=== PATIENT | female | born 1960 | race Caucasian/White ===

== ENCOUNTER 2018-01-15 17:54 | Emergency (ER) | payer MEDICARE, OTHER ==
[~2018-01-15] VITALS: Ht 167.6 cm; Wt 49.9 kg
[~2018-01-15 17:54] MED LIST: ALBU90OI; ALBU90OI INH; ALPR1; ASPI81CH; ASPI81EC; AZIT250; BACL10; BIOTIN; Benadryl Itch28.3 G1 TP; CALCA500CH; CEFD300 PO; CEPH250SUA PO; CLIN150 PO; CLIN300 PO; CONEST.625; Cleocin HCl150 MG PO; DOXY100 PO; ELET40TA; EPIN.3I; EPIN.3I IM; EPIPEN 2-P0.3 MG/0.3 IJ; Estradiol1 MG PO; HORMONE THERAPY; HYDACE10B; HYDACE5325; HYDACE5325 PO; HYDSUL200; HYDSUL200 PO; HYOS.375ER; HYOS0.375T; ISODICACE; Imitrex100 MG PO; LEUC5; LEVOCETIRIZINE D5 MG PO; LEVOTHYROXINE; LEVSOD100 PO; LEVSOD25 PO; LEVSOD50; LIOT25 PO; LORA10ER; METHOTREXATE INJ; MORP30ER; MORP30ER PO; MORP60ER; MORP60ER PO; MORPHINE; MULVITA; NASACORT10.8 ML; OMEP20ER PO; ONDA4 PO; ONDA4ODT MM; ONE DAILY MULT1 EACH PO; OXYACE5T PO; POTASSIUM OTC; PRED10 PO; PRED20 PO; PRED5; PROC5S PR; PROM25; PROM25 PO; Pepcid40 MG PO; Prednisone20 MG PO; Prilosec Otc20 MG PO; RANI150; RXONDA4ODT MM; TEGA6; TIZA4; TRAM50 PO; TRIAOIA; Vibramycin100 MG PO; Zofran Odt4 MG SL; [UNRECOGNIZED DRUG - SUPPLY]
[2018-01-15] MEDS ORDERED: Nortriptyline H10 MG PO (21:03)
[2018-01-15] MEDS ORDERED: Ultram50 MG PO (21:03)
== END 2018-01-15 21:25 | disposition home or self-care (01) ==
LOC: ER 17:54
DX: S06.0X9A Concussion with loss of consciousness of unspecified duration, initial encounter (principal); W22.8XXA Striking against or struck by other objects, initial encounter
CPT/HCPCS: 70450; 99284

== ENCOUNTER 2018-05-26 12:23 | Emergency (ER) | payer MEDICARE, OTHER ==
[~2018-05-26] VITALS: Ht 167.6 cm; Wt 47.6 kg
[~2018-05-26 12:23] MED LIST changes: +Nortriptyline H10 MG PO; +Ultram50 MG PO
[2018-05-26 13:01] LABS: BASOPHILS ABSOLUTE AUTO 0.02 K/mm3 (0.00-0.23); BASOPHILS PERCENT AUTO 0 % (0-2); EOSINOPHILS ABSOLUTE AUTO 0.09 K/mm3 (0.00-0.68); EOSINOPHILS PERCENT AUTO 1 % (0-6); Hematocrit 42.7 % (33.0-51.0); Hemoglobin 13.3 g/dL (11.5-16.0); IMMATURE GRAN ABSOLUTE AUTO 0.02 K/mm3 (0.00-0.10); IMMATURE GRAN PERCENT AUTO 0 % (0-1); LYMPHOCYTES ABSOLUTE AUTO 3.39 K/mm3 (0.84-5.20); LYMPHOCYTES PERCENT AUTO 46 % (21-46); MONOCYTES ABSOLUTE AUTO 0.27 K/mm3 (0.16-1.47); MONOCYTES PERCENT AUTO 4 % (4-13); Mean Corpuscular HGB Conc 31.1 g/dL (31.5-36.5); Mean Corpuscular Volume 90 fL (80-100); NEUTROPHILS ABSOLUTE AUTO 3.63 K/mm3 (1.96-9.15); NEUTROPHILS PERCENT AUTO 49 % (41-73); Platelet Count 355 K/mm3 (150-400); RDW Coefficient Variation 13.2 % (11.7-14.2); RDW Standard Deviation 43.2 fL (35.1-46.3); Red Blood Cell Count 4.75 M/mm3 (3.80-5.20); White Blood Cell Count 7.42 K/mm3 (4.00-11.30)
[2018-05-26 13:16] LABS: Alanine Aminotransfer (ALT/SGP 63 U/L (12-78); Albumin, Blood 3.3 g/dL (3.4-5.0); Albumin/Globulin Ratio 0.8 (0.8-1.8); Alk Phos 104 U/L (50-136); Anion Gap 11 mmol/L (6-16); Aspartate Aminotrans (AST/SGOT 47 U/L (12-37); Bilirubin, Total 0.3 mg/dL (0.1-1.0); Blood Urea Nitrogen 21 mg/dL (8-24); Bun/Creatinine Ratio 24.5 (12.0-20.0); CO2, Blood 22 mmol/L (21-32); Calcium, Blood 8.3 mg/dL (8.5-10.1); Chloride, Blood 111 mmol/L (98-108); Creatinine, Blood 0.86 mg/dL (0.40-1.00); Globulin, Blood 3.9 g/dL (2.2-4.0); Glomerular Filtration Rate >60 (60-); Glucose, Blood 202 mg/dL (70-99); Potassium, Blood 3.8 mmol/L (3.5-5.5); Sodium, Blood 144 mmol/L (136-145); Total Protein, Blood 7.2 g/dL (6.4-8.2)
[2018-05-26] MEDS ORDERED: ACET325 PO (15:14)
[2018-05-26] MEDS ORDERED: Synthroid/Lev0.05 MG PO (17:46)
[2018-05-26] MEDS ORDERED: OMEPRAZOLE MAGN20 MG PO (17:46)
== END 2018-05-26 18:07 | disposition home or self-care (01) ==
LOC: ER 12:23
PROVIDERS: Emergency Medicine
DX: E86.0 Dehydration (principal); Z91.030 Bee allergy status; Z91.041 Radiographic dye allergy status; Z88.0 Allergy status to penicillin; Z88.2 Allergy status to sulfonamides; Z88.1 Allergy status to other antibiotic agents
CPT/HCPCS: 36415; 71046; 80053; 81000; 84443; 84484; 85025; 93005; 93010; 96374; 99285-25; C9113; J7120

== ENCOUNTER 2018-07-03 01:17 | Emergency (ER) | payer MEDICARE, OTHER ==
[~2018-07-03] VITALS: Ht 167.6 cm; Wt 49.9 kg
[~2018-07-03 01:17] MED LIST changes: +ACET325 PO; +OMEPRAZOLE MAGN20 MG PO; +Synthroid/Lev0.05 MG PO
[2018-07-03 01:50] LABS: Source, Urine Clean Catch
[2018-07-03 01:53] LABS: Bilirubin, Urine Neg (Neg); Blood, Urine Neg (Neg); Glucose Qualitative, Urine Neg (Neg); Ketones, Urine Neg (Neg); Leukocyte Esterase, Urine 1+ (Neg); Nitrite, Urine Neg (Neg); Protein, Urine Neg (Neg); Urobilinogen, Urine NORM (Normal)
[2018-07-03 01:57] LABS: BASOPHILS ABSOLUTE AUTO 0.03 K/mm3 (0.00-0.23); BASOPHILS PERCENT AUTO 0 % (0-2); EOSINOPHILS ABSOLUTE AUTO 0.17 K/mm3 (0.00-0.68); EOSINOPHILS PERCENT AUTO 2 % (0-6); Hematocrit 36.5 % (33.0-51.0); Hemoglobin 11.5 g/dL (11.5-16.0); IMMATURE GRAN ABSOLUTE AUTO 0.05 K/mm3 (0.00-0.10); IMMATURE GRAN PERCENT AUTO 1 % (0-1); LYMPHOCYTES ABSOLUTE AUTO 4.87 K/mm3 (0.84-5.20); LYMPHOCYTES PERCENT AUTO 57 % (21-46); MONOCYTES ABSOLUTE AUTO 0.53 K/mm3 (0.16-1.47); MONOCYTES PERCENT AUTO 6 % (4-13); Mean Corpuscular HGB Conc 31.5 g/dL (31.5-36.5); Mean Corpuscular Volume 89 fL (80-100); Mean Platelet Volume 9.7 fL (9.1-12.4); NEUTROPHILS ABSOLUTE AUTO 2.91 K/mm3 (1.96-9.15); NEUTROPHILS PERCENT AUTO 34 % (41-73); Platelet Count 324 K/mm3 (150-400); RDW Coefficient Variation 13.2 % (11.7-14.2); RDW Standard Deviation 43.4 fL (35.1-46.3); Red Blood Cell Count 4.11 M/mm3 (3.80-5.20); White Blood Cell Count 8.56 K/mm3 (4.00-11.30)
[2018-07-03 02:06] LABS: Appearance, Urine Clear (Clear); Color, Urine Yellow (P-Yellow)
[2018-07-03 02:07] LABS: Bacteria Few /hpf; Red Blood Cells, Urine 0-2 /hpf (0-2); Squamous Epithelial Cells Few /hpf (Few)
[2018-07-03 03:06] LABS: Anion Gap 5 mmol/L (6-16); Blood Urea Nitrogen 24 mg/dL (8-24); Bun/Creatinine Ratio 34.1 (12.0-20.0); CO2, Blood 29 mmol/L (21-32); Calcium, Blood 8.3 mg/dL (8.5-10.1); Chloride, Blood 107 mmol/L (98-108); Glomerular Filtration Rate >60 (60-); Glucose, Blood 77 mg/dL (70-99); Potassium, Blood 3.6 mmol/L (3.5-5.5); Sodium, Blood 141 mmol/L (136-145); Troponin I <0.015 ng/mL (0.000-0.040)
[2018-07-03] MEDS ORDERED: Vibramycin100 MG PO (03:26)
== END 2018-07-03 03:36 | disposition home or self-care (01) ==
LOC: ER 01:17
PROVIDERS: Emergency Medicine
DX: R07.89 Other chest pain (principal); N39.0 Urinary tract infection, site not specified; L98.9 Disorder of the skin and subcutaneous tissue, unspecified; E03.9 Hypothyroidism, unspecified; Z91.038 Other insect allergy status; Z91.030 Bee allergy status; Z91.041 Radiographic dye allergy status; Z88.0 Allergy status to penicillin; Z88.2 Allergy status to sulfonamides; Z88.1 Allergy status to other antibiotic agents; Z79.899 Other long term (current) drug therapy
CPT/HCPCS: 36415; 80048; 81001; 84484; 85025; 87086; 93005; 93010; 99283-25

== ENCOUNTER 2019-01-01 21:54 | Inpatient (IN) | payer MEDICARE, OTHER ==
[~2019-01-01] VITALS: Ht 167.6 cm; Wt 51.8 kg
[2019-01-01 22:46] LABS: Hematocrit 41.1 % (33.0-51.0); Mean Corpuscular HGB 27.7 pg (26.0-34.0); Mean Corpuscular HGB Conc 31.6 g/dL (31.5-36.5); Mean Corpuscular Volume 88 fL (80-100); Mean Platelet Volume 11.4 fL (9.1-12.4); Platelet Count 154 K/mm3 (150-400); RDW Coefficient Variation 14.6 % (11.7-14.2); RDW Standard Deviation 46.8 fL (35.1-46.3); Red Blood Cell Count 4.69 M/mm3 (3.80-5.20); White Blood Cell Count 12.75 K/mm3 (4.00-11.30)
[2019-01-01 23:06] LABS: BAND PERCENT MAN 26 % (0-8); BASOPHILS PERCENT MAN 0 % (0-2); EOSINOPHILS PERCENT MAN 0 % (0-6); LYMPHOCYTES ABSOLUTE MAN 1.65 K/mm3 (0.84-5.20); LYMPHOCYTES PERCENT MAN 13 % (21-46); METAMYELOCYTE ABSOLUTE MAN 0.12 K/mm3 (0.00-0.00); METAMYELOCYTE PERCENT MAN 1 % (0-0); MONOCYTES ABSOLUTE MAN 0.63 K/mm3 (0.16-1.47); MONOCYTES PERCENT MAN 5 % (4-13); MYELOCYTE ABSOLUTE MAN 0.12 K/mm3 (0.00-0.00); MYELOCYTE PERCENT MAN 1 % (0-0); SEG NEUTROPHILS PERCENT MAN 54 % (41-73); TOTAL CELLS COUNTED 100
[2019-01-01 23:49] LABS: Albumin, Blood 3.1 g/dL (3.4-5.0); Albumin/Globulin Ratio 0.8 (0.8-1.8); Bilirubin, Total 1.1 mg/dL (0.1-1.0); Bun/Creatinine Ratio 30.1 (12.0-20.0); Calcium, Blood 8.2 mg/dL (8.5-10.1); Creatinine, Blood 1.23 mg/dL (0.40-1.00); Globulin, Blood 3.8 g/dL (2.2-4.0); Potassium, Blood 3.8 mmol/L (3.5-5.5); Total Protein, Blood 6.9 g/dL (6.4-8.2)
[2019-01-02 00:23] LABS: Influenza A Negative (NEGATIVE); Influenza B Negative (NEGATIVE)
[2019-01-02 00:48] LABS: Candida species (DNA Probe) Negative (NEGATIVE); G. vaginalis (DNA Probe) Negative (NEGATIVE); T. vaginalis (DNA Probe) Negative (NEGATIVE)
[2019-01-02 02:01] LABS: Albumin, Blood 3.4 g/dL (3.4-5.0); Albumin/Globulin Ratio 0.9 (0.8-1.8); Bilirubin, Total 1.3 mg/dL (0.1-1.0); Bun/Creatinine Ratio 30.3 (12.0-20.0); Calcium, Blood 8.1 mg/dL (8.5-10.1); Creatinine, Blood 1.19 mg/dL (0.40-1.00); Globulin, Blood 3.9 g/dL (2.2-4.0); Potassium, Blood 3.9 mmol/L (3.5-5.5); Total Protein, Blood 7.3 g/dL (6.4-8.2)
[2019-01-02 08:46] LABS: Source, Urine Clean Catch
[2019-01-02 08:51] LABS: Bilirubin, Urine Neg (Neg); Blood, Urine 2+ (Neg); Glucose Qualitative, Urine Neg (Neg); Ketones, Urine Neg (Neg); Leukocyte Esterase, Urine Neg (Neg); Nitrite, Urine Neg (Neg); Protein, Urine 2+ (Neg); Urobilinogen, Urine NORM (Normal)
[2019-01-02 09:11] LABS: Appearance, Urine Clear (Clear); Color, Urine Yellow (P-Yellow)
[2019-01-02 09:23] LABS: Bacteria Few /hpf; Squamous Epithelial Cells Few /hpf (Few)
[2019-01-02 09:24] LABS: Amorphous Light (0-Heavy)
[2019-01-02 09:25] LABS: WBC Cast 0-2 /lpf (0)
[2019-01-02 09:26] LABS: Transitional Epithelial Cells Rare /hpf (0-Rare)
--- NOTE | 2019-01-02 13:43 | NUR ---
History, Chart, Medications and Allergies reviewed before start of procedure.Lungs clear T/O to Auscultation. Patient confirms NPO status and agrees with scheduled surgery.
--- NOTE | 2019-01-02 18:14 | NUR ---
NEW ER ADMIT. CAME TO ROOM 1630 FROM DAY SURG WHERE SHE HAD BEEN WAITING FOR EGD WITH DR DANIEL R/T MELENA X 2 DAYS, PROCEDURE HAS BEEN DELAYED SO BROUGHT TO ROOM. DAY COOK [facility] WILL BE BACK FOR PT APPROX 2 HRS. SHE CONTINUES NPO. STATE UPPER ABD PAIN & H/A 06/21, DR PERSON ORDER DILAUDID 1MG, PT STATE GOOD RELIEF. LR INFUSING @ 150 ML/HR. TELE NSR 80'S. ABD IS SOFT/TENDER. PT IS A/O X4, PLEASANT/COOPERATIVE, APPRECIATIVE. VSS W TEMP 100.6
--- NOTE | 2019-01-02 20:03 | NUR ---
INTO SDS VIA Rezzie. PT A&OX3. DENIES PAIN, BUT REPORTS INTERMITTENT NAUSEA.NPO STATUS CONFIRMED. ALLERGIES AND HISTORY REVIEWED. LUNGS CLEAR.
--- NOTE | 2019-01-02 20:36 | NUR ---
01/02/192035 Kathy [place] History, Chart, Medications and Allergies reviewed before start of procedure.Patient confirms NPO status and agrees with scheduled surgery.PATIENT DETERMINED TO BE ASA APPROPRIATE FOR PROPOFOL SEDATION PRIOR TO START OF PROCEDURE BY .MONITOR INTACT WITH CONTINUOUS PULSE OXIMETRY AND INTERMITTENT BP.3-LEAD EKG REVIEWED WITH PHYSICIAN PRIOR TO START OF PROCEDURE.O2 VIA N/C INTACT THROUGHOUT SEDATION/PROCEDURE.
[2019-01-02 20:57] LABS: U Amphetamine Screen DETECTED; U Barbituate Screen Not Detected; U Benzodiazapine Screen Not Detected; U Buprenorphine Screen Not Detected; U Cannabinoids Screen Not Detected; U Cocaine Screen Not Detected; U Methadone Screen Not Detected; U Methamphetamine Screen DETECTED; U Opiates Screen Not Detected; U Oxycodone Screen Not Detected; U Phencyclidine Screen Not Detected; U Propoxyphene Screen Not Detected
--- NOTE | 2019-01-03 05:30 | NUR ---
*SHIFT SUMMARY* PATIENT IS ALERT AND ORIENTED. PATIENT WENT TO PROCEDURE FOR EGD AROUND 193. PATIENT RETURNED JUST BEFORE 2099. PATIENT WAS AWAKE AND TALKING, COMPLAINING OF MILD NAUSEA. STATING SHE WANTS TO TRY TO EAT SOME DINNER, HER SON WENT OUT TO GET HER SOME DINNER. PATIENT REQUESTED ZOFRAN TO HELP DECREASE HER NAUSEA. PATIENT ATE SOME JELLO FOLLOWED BY CRACKERS AND WATER. PATIENT BEGAN TO VOMIT SOON AFTER. PATIENT VOMITED SEVERAL TIMES FOR ABOUT TWO HOURS AFTER BEING MEDICATED WITH ZOFRAN. CALLED HOSPITALIST. NEW ORDERS FOR ONE TIME ZOFRAN 4MG, AND CHANGED THE Q6HR ZOFRAN PRN TO Q4HR PRN AND ADDED REGLAN Q6HR PRN. PATIENT WAS MEDICATED WITH ONE TIME DOSE. PATIENT STILL COMPLAINED OF NAUSEA AND VOMITING. PATIENT DID NOT EAT ANYTHING OR DRINK ANYTHING AFTER EATING THE CRACKERS AND JELLO. MEDICATED WITH REGLAN ORDERED. PATIENT REPORTS A DECREASE IN NAUSEA AND HAS BEEN SLEEPING FOR SINCE MEDICATED. PATIENT UP IN ROOM INDEPENDENT TO BATHROOM, PATIENT HAS BEEN WRITING URINE OUTPUT ON BOARD FOR STAFF TO CHART. CALL LIGHT IN ROOM, BED LOWERED AND LOCKED.
[2019-01-03 05:36] LABS: Hematocrit 31.2 % (33.0-51.0); Mean Corpuscular HGB 28.1 pg (26.0-34.0); Mean Corpuscular HGB Conc 32.1 g/dL (31.5-36.5); Mean Corpuscular Volume 88 fL (80-100); Mean Platelet Volume 12.2 fL (9.1-12.4); Platelet Count 123 K/mm3 (150-400); RDW Coefficient Variation 14.6 % (11.7-14.2); RDW Standard Deviation 47.5 fL (35.1-46.3); Red Blood Cell Count 3.56 M/mm3 (3.80-5.20); White Blood Cell Count 16.11 K/mm3 (4.00-11.30)
[2019-01-03 06:17] LABS: Anion Gap 6 mmol/L (6-16); Blood Urea Nitrogen 14 mg/dL (8-24); Bun/Creatinine Ratio 19.1 (12.0-20.0); CO2, Blood 26 mmol/L (21-32); Chloride, Blood 108 mmol/L (98-108); Creatinine, Blood 0.73 mg/dL (0.40-1.00); Glomerular Filtration Rate >60 (60-); Glucose, Blood 67 mg/dL (70-99); Potassium, Blood 3.3 mmol/L (3.5-5.5); Sodium, Blood 140 mmol/L (136-145)
[2019-01-03 06:32] LABS: BAND PERCENT MAN 11 % (0-8); BASOPHILS PERCENT MAN 0 % (0-2); EOSINOPHILS PERCENT MAN 0 % (0-6); LYMPHOCYTES ABSOLUTE MAN 1.77 K/mm3 (0.84-5.20); LYMPHOCYTES PERCENT MAN 11 % (21-46); MONOCYTES ABSOLUTE MAN 0.48 K/mm3 (0.16-1.47); MONOCYTES PERCENT MAN 3 % (4-13); NEUTROPHILS ABSOLUTE MAN 13.85 K/mm3 (1.96-9.15); SEG NEUTROPHILS PERCENT MAN 75 % (41-73); TOTAL CELLS COUNTED 100
[2019-01-03 07:16] LABS: HBSAG SCREEN Negative (Negative); HEP A AB, IGM Negative (Negative); HEP B CORE AB, IGM Negative (Negative); HEP C VIRUS AB <0.1 (0.0-0.9)
[2019-01-03 14:27] LABS: Prothrombin Time Results 10.6 Sec (9.7-11.5)
[2019-01-03 14:53] LABS: Albumin, Blood 2.5 g/dL (3.4-5.0); Albumin/Globulin Ratio 0.8 (0.8-1.8); Bilirubin, Direct 0.2 mg/dL (0.0-0.3); Bilirubin, Indirect 0.4 mg/dL (0.1-0.7); Bilirubin, Total 0.6 mg/dL (0.1-1.0); Globulin, Blood 3.1 g/dL (2.2-4.0); Total Protein, Blood 5.6 g/dL (6.4-8.2)
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
[2019-01-04 02:13] LABS: CHLAMYDIA TRACHOMATIS, NAA Negative (Negative); NEISSERIA GONORRHOEAE, NAA Negative (Negative)
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
[2019-01-04 05:04] LABS: BASOPHILS ABSOLUTE AUTO 0.03 K/mm3 (0.00-0.23); BASOPHILS PERCENT AUTO 0 % (0-2); EOSINOPHILS ABSOLUTE AUTO 0.09 K/mm3 (0.00-0.68); EOSINOPHILS PERCENT AUTO 1 % (0-6); Hematocrit 32.8 % (33.0-51.0); Hemoglobin 10.3 g/dL (11.5-16.0); IMMATURE GRAN ABSOLUTE AUTO 0.03 K/mm3 (0.00-0.10); IMMATURE GRAN PERCENT AUTO 0 % (0-1); LYMPHOCYTES PERCENT AUTO 22 % (21-46); MONOCYTES ABSOLUTE AUTO 0.24 K/mm3 (0.16-1.47); MONOCYTES PERCENT AUTO 2 % (4-13); Mean Corpuscular HGB 27.5 pg (26.0-34.0); Mean Corpuscular HGB Conc 31.4 g/dL (31.5-36.5); Mean Corpuscular Volume 88 fL (80-100); Mean Platelet Volume 12.4 fL (9.1-12.4); NEUTROPHILS ABSOLUTE AUTO 8.87 K/mm3 (1.96-9.15); NEUTROPHILS PERCENT AUTO 75 % (41-73); Platelet Count 124 K/mm3 (150-400); RDW Coefficient Variation 14.5 % (11.7-14.2); RDW Standard Deviation 46.7 fL (35.1-46.3); Red Blood Cell Count 3.74 M/mm3 (3.80-5.20); White Blood Cell Count 11.86 K/mm3 (4.00-11.30)
[2019-01-04 06:01] LABS: Alanine Aminotransfer (ALT/SGP 396 U/L (12-78); Albumin, Blood 2.5 g/dL (3.4-5.0); Albumin/Globulin Ratio 0.8 (0.8-1.8); Alk Phos 147 U/L (50-136); Anion Gap 7 mmol/L (6-16); Aspartate Aminotrans (AST/SGOT 140 U/L (12-37); Bilirubin, Total 0.5 mg/dL (0.1-1.0); Blood Urea Nitrogen 9 mg/dL (8-24); Bun/Creatinine Ratio 10.4 (12.0-20.0); CO2, Blood 26 mmol/L (21-32); Calcium, Blood 8.1 mg/dL (8.5-10.1); Chloride, Blood 112 mmol/L (98-108); Creatinine, Blood 0.86 mg/dL (0.40-1.00); Globulin, Blood 3.1 g/dL (2.2-4.0); Glomerular Filtration Rate >60 (60-); Glucose, Blood 165 mg/dL (70-99); Potassium, Blood 2.9 mmol/L (3.5-5.5); Sodium, Blood 145 mmol/L (136-145); Total Protein, Blood 5.6 g/dL (6.4-8.2)
--- NOTE | 2019-01-04 16:17 | NUR ---
SHIFT SUMMARY ADMITTED FOR MELENA/SEPSIS/COFFEE GROUND EMESIS. PT HAS A COLONOSCOPY RESCHEDULED FOR SUNDAY DUE TO SEVERE NAUSEA (PREV. ONE CANCELLED). DR. WOODARD WANTS THE PT PUT ON FULL LIQUIDS TOMORROW, AND AT MIDNIGHT TO WATER ONLY. SHE WILL START GO-LYTELY SUNDAY MORNING, NPO AT 2 PM BEFORE PROCEDURE. PT IS INDEPENDENT IN ROOM, A & O X4, TAKES HER MEDS WHOLE. TODAY SHE HAS FELT INTERMITTENT NAUSEA, ALTERNATIVELY TREATED WITH MEDICATIONS AND CRACKERS/JUICE. TELEMETRY WAS DC'D TODAY. PHENERGAN SEEMS TO CONTROL NAUSEA BEST.
--- NOTE | 2019-01-05 03:24 | NUR ---
SHIFT SUMMARY PATIENT HAD NO ACUTE CHANGES OBSERVED DURING THE SHIFT. AXO X3 AND INDEPENDENT IN THE ROOM. REPORTED N/V AMD PHENERGAN GIVEN PER EMAR. IV DILAUDID FOR ABDOMEN PAIN/ORR PER EMAR. PATIENT REPORTS CRACKERS HELP WITH N/V. PIV REMAINS INTACT. IV ABX INFUSED. PATIENT LESS ANXIOUS THIS SHIFT. VSS/AFEBRILE. DENIES SOB. ON REGULAR DIET. PATIENT SCHEDULE FOR COLONOSCOPY FOR SUNDAY LATE AFTERNOON. CALL LIGHT IN REACH. BED IN LOWEST POSITION. WILL CONTINUE TO MONITOR UNTIL DAY SHIFT NURSE ASSUMES CARE.
[2019-01-05 08:29] LABS: BASOPHILS ABSOLUTE AUTO 0.04 K/mm3 (0.00-0.23); BASOPHILS PERCENT AUTO 1 % (0-2); EOSINOPHILS ABSOLUTE AUTO 0.23 K/mm3 (0.00-0.68); EOSINOPHILS PERCENT AUTO 3 % (0-6); Hematocrit 33.3 % (33.0-51.0); Hemoglobin 10.4 g/dL (11.5-16.0); IMMATURE GRAN ABSOLUTE AUTO 0.16 K/mm3 (0.00-0.10); IMMATURE GRAN PERCENT AUTO 2 % (0-1); LYMPHOCYTES ABSOLUTE AUTO 3.99 K/mm3 (0.84-5.20); LYMPHOCYTES PERCENT AUTO 54 % (21-46); MONOCYTES ABSOLUTE AUTO 0.59 K/mm3 (0.16-1.47); MONOCYTES PERCENT AUTO 8 % (4-13); Mean Corpuscular HGB 27.5 pg (26.0-34.0); Mean Corpuscular HGB Conc 31.2 g/dL (31.5-36.5); Mean Corpuscular Volume 88 fL (80-100); Mean Platelet Volume 11.6 fL (9.1-12.4); NEUTROPHILS ABSOLUTE AUTO 2.36 K/mm3 (1.96-9.15); NEUTROPHILS PERCENT AUTO 32 % (41-73); Platelet Count 154 K/mm3 (150-400); RDW Coefficient Variation 14.6 % (11.7-14.2); RDW Standard Deviation 46.9 fL (35.1-46.3); Red Blood Cell Count 3.78 M/mm3 (3.80-5.20); White Blood Cell Count 7.37 K/mm3 (4.00-11.30)
[2019-01-05 08:44] LABS: Alanine Aminotransfer (ALT/SGP 289 U/L (12-78); Albumin, Blood 2.5 g/dL (3.4-5.0); Albumin/Globulin Ratio 0.8 (0.8-1.8); Alk Phos 133 U/L (50-136); Anion Gap 6 mmol/L (6-16); Aspartate Aminotrans (AST/SGOT 67 U/L (12-37); Bilirubin, Total 0.2 mg/dL (0.1-1.0); Blood Urea Nitrogen 12 mg/dL (8-24); Bun/Creatinine Ratio 15.2 (12.0-20.0); CO2, Blood 30 mmol/L (21-32); Calcium, Blood 9.3 mg/dL (8.5-10.1); Chloride, Blood 107 mmol/L (98-108); Creatinine, Blood 0.79 mg/dL (0.40-1.00); Globulin, Blood 3.2 g/dL (2.2-4.0); Glomerular Filtration Rate >60 (60-); Glucose, Blood 81 mg/dL (70-99); Potassium, Blood 3.2 mmol/L (3.5-5.5); Sodium, Blood 143 mmol/L (136-145); Total Protein, Blood 5.7 g/dL (6.4-8.2)
--- NOTE | 2019-01-05 16:38 | NUR ---
SHIFT SUMMARY PT SEEMS MORE EMOTIONAL TODAY, SHE REPORTS PERSONAL ISSUES/DRAMA IN HER LIFE THAT IS CAUSING EXTRA STRESS. SHE REPORTS ONGOING PAIN IN HER HEAD AND ABDOMEN, WELL SEVERE NAUSEA. TOMORROW SHE WILL RECEIVE A SECOND ATTEMPT AT A COLONOSCOPY (1ST ONE CANCELLED). NO DIET ORDERS FOR TONIGHT HAVE BEEN ENTERED. I DID CALL DR. WOODARD'S ANSWERING SERVICE AND WAS CONNECTED TO AN ALTERNATE DR. HE STATED THAT A CLEAR LIQUID DIET WILL BE FINE UNTIL MORNING. I DO REMEMBER DR WOODARD STATING THAT THE PT WOULD BE WATER & ICE CHIPS (PO MEDS OK) AT MIDNIGHT TONIGHT, NPO AT 1500 SATURDAY 01/06. PT WILL BEGIN GO LYTELY AT 0800 TOMORROW. COLONOSCOPY WILL BE A LATE AFTERNOON PROCEDURE.
--- NOTE | 2019-01-05 22:25 | NUR ---
PATIENT RESTING IN BED WATCHING HER COMPUTER. DENIES PAIN, N/V, AND SOB. CALL LIGHT IN REACH. WILL CONTINUE TO MONITOR.
--- NOTE | 2019-01-06 02:28 | NUR ---
SHIFT SUMMARY PATIENT HAD NO ACUTE CHANGES OBSERVED THIS SHIFT. AXO X 4 AND INDEPENDENT IN THE ROOM. DENIES PAIN, SOB, AND N/V. WATER AND ICE CHIPS AFTER 23:30 AND PO MEDS. GOLYTELY 08:00 AFTER ZOFRAN 07:40 THIS AM. NPO AFTER 14:00 TODAY FOR COLONOSCOPY LATE AFTERNOON. PIV REMAINS INTACT. VSS/AFEBRILE. CALL LIGHT IN REACH. BED IN LOWEST POSITION. WILL CONTINUE TO MONITOR UNTIL DAY SHIFT NURSE ASSUMES CARE.
[2019-01-06 05:08] LABS: BASOPHILS ABSOLUTE AUTO 0.05 K/mm3 (0.00-0.23); BASOPHILS PERCENT AUTO 1 % (0-2); EOSINOPHILS ABSOLUTE AUTO 0.29 K/mm3 (0.00-0.68); EOSINOPHILS PERCENT AUTO 4 % (0-6); Hematocrit 34.6 % (33.0-51.0); Hemoglobin 10.8 g/dL (11.5-16.0); IMMATURE GRAN PERCENT AUTO 5 % (0-1); LYMPHOCYTES ABSOLUTE AUTO 4.07 K/mm3 (0.84-5.20); LYMPHOCYTES PERCENT AUTO 53 % (21-46); MONOCYTES ABSOLUTE AUTO 0.64 K/mm3 (0.16-1.47); MONOCYTES PERCENT AUTO 8 % (4-13); Mean Corpuscular HGB 27.6 pg (26.0-34.0); Mean Corpuscular HGB Conc 31.2 g/dL (31.5-36.5); Mean Corpuscular Volume 88 fL (80-100); Mean Platelet Volume 11.3 fL (9.1-12.4); NEUTROPHILS ABSOLUTE AUTO 2.17 K/mm3 (1.96-9.15); NEUTROPHILS PERCENT AUTO 29 % (41-73); Platelet Count 189 K/mm3 (150-400); RDW Coefficient Variation 14.2 % (11.7-14.2); RDW Standard Deviation 45.6 fL (35.1-46.3); Red Blood Cell Count 3.92 M/mm3 (3.80-5.20); White Blood Cell Count 7.62 K/mm3 (4.00-11.30)
[2019-01-06 05:32] LABS: BAND PERCENT MAN 1 % (0-8); BASOPHILS PERCENT MAN 0 % (0-2); EOSINOPHILS ABSOLUTE MAN 0.38 K/mm3 (0.00-0.68); EOSINOPHILS PERCENT MAN 5 % (0-6); LYMPHOCYTES ABSOLUTE MAN 4.34 K/mm3 (0.84-5.20); LYMPHOCYTES PERCENT MAN 57 % (21-46); MONOCYTES ABSOLUTE MAN 0.53 K/mm3 (0.16-1.47); MONOCYTES PERCENT MAN 7 % (4-13); NEUTROPHILS ABSOLUTE MAN 2.36 K/mm3 (1.96-9.15); SEG NEUTROPHILS PERCENT MAN 30 % (41-73); TOTAL CELLS COUNTED 100
[2019-01-06 06:02] LABS: Albumin, Blood 2.6 g/dL (3.4-5.0); Albumin/Globulin Ratio 0.8 (0.8-1.8); Alk Phos 125 U/L (50-136); Anion Gap 8 mmol/L (6-16); Bilirubin, Direct 0.1 mg/dL (0.0-0.3); Bilirubin, Indirect 0.2 mg/dL (0.1-0.7); Bilirubin, Total 0.3 mg/dL (0.1-1.0); Blood Urea Nitrogen 17 mg/dL (8-24); Bun/Creatinine Ratio 21.8 (12.0-20.0); CO2, Blood 29 mmol/L (21-32); Calcium, Blood 8.5 mg/dL (8.5-10.1); Chloride, Blood 105 mmol/L (98-108); Creatinine, Blood 0.78 mg/dL (0.40-1.00); Globulin, Blood 3.2 g/dL (2.2-4.0); Glomerular Filtration Rate >60 (60-); Glucose, Blood 106 mg/dL (70-99); Potassium, Blood 3.4 mmol/L (3.5-5.5); Sodium, Blood 142 mmol/L (136-145); Total Protein, Blood 5.8 g/dL (6.4-8.2)
[2019-01-06 06:03] LABS: Alanine Aminotransfer (ALT/SGP 229 U/L (12-78); Aspartate Aminotrans (AST/SGOT 40 U/L (12-37)
--- NOTE | 2019-01-06 15:46 | NUR ---
PATIENT A/OX4, UP INDEPENDENTLY IN ROOM. VSS THIS SHIFT. COLONOSCOPY ON HOLD DUE TO POWER OUTAGE. IF POWER COMES BACK ON, THEN PATIENT MAY HAVE COLONOSCOPY TOMORROW. ZOFRAN GIVEN X2 THIS SHIFT TO TREAT NAUSEA. 2 20G IV'WS TO R AND L AC'S WNL AND SL. PATIENT IS CALM AND COOPERATIVE WITH CARE. NO ACUTE CHANGES THIS SHIFT.
--- NOTE | 2019-01-07 04:43 | NUR ---
REHABILITATION NURSE SUMMARY NO ACUTE CHANGES THIS SHIFT. PT AAOX4 AND INDEPENDENT IN HER ROOM. STILL COMPLAINS OF SOME ABD PAINS, TREATED WITH ULTRAM AND DILAUDID 0.5 MG IV WITH GOOD PAIN RELIEF. ALSO GIVEN PT 4 MG IV ZOFRAN X1 FOR NAUSEA. PT HAS NOT VOMITED THIS SHIFT, JUST SOME NAUSEA. PT HAS BEEN ON CLEAR LIQUID DIET SINCE MIDNIGHT. VSS, WILL CONTINUE TO MONITOR.
[2019-01-07] MEDS ORDERED: TRAM50 (11:38)
[2019-01-07] MEDS ORDERED: ONDA4ODT (11:38)
--- NOTE | 2019-01-07 14:10 | NUR ---
discharge summary cesar left with her boyfriends mom via car. pivs removed, paperwork reviewed. meds faxed to [facility] per her request. independent in room. has had nausea and pain meds prn, and is being discharged with these with directions to call for f/u appt with connie and the need to establish a pcp.
== END 2019-01-07 13:59 | disposition home or self-care (01) | DRG 683 ==
LOC: ER 21:54 → ERHOLD 21:55 → MEDS 01-02 16:03 → ERHOLD 01-02 16:03 → MEDS 01-02 17:09 → ENPENDDIS 01-07 11:49 → MEDS 01-07 13:59
PROVIDERS: Emergency Medicine; Hospitalist; Internal Medicine; Internal Medicine Gastroenterology; ADMIT Internal Medicine
PROC: 30233N1 Transfusion of Nonautologous Red Blood Cells into Peripheral Vein, Percutaneous Approach (ICD-10-PCS; 2019-01-02)
PROC: 0DB68ZX Excision of Stomach, Via Natural or Artificial Opening Endoscopic, Diagnostic (ICD-10-PCS; principal; 2019-01-02 14:00)
DX: N17.9 Acute kidney failure, unspecified (principal); B17.9 Acute viral hepatitis, unspecified; K92.1 Melena; R65.10 Systemic inflammatory response syndrome (SIRS) of non-infectious origin without acute organ dysfunction; E87.2 Acidosis; E86.0 Dehydration; F15.10 Other stimulant abuse, uncomplicated; E03.9 Hypothyroidism, unspecified; A49.02 Methicillin resistant Staphylococcus aureus infection, unspecified site; M06.9 Rheumatoid arthritis, unspecified; Z86.718 Personal history of other venous thrombosis and embolism; K04.7 Periapical abscess without sinus
CPT/HCPCS: 36415; 76705; 80048; 80053; 80074; 80076; 81001; 83605; 83690; 85025; 85610; 85651; 86850; 86900; 86901; 87040; 87086; 87480; 87491; 87510; 87591; 87660; 87804; 88305; 88342; 93005; 93010; 96361; 96365; 96366; 96367; 96368; 96372-59; 96375; 96376; 99285-25; C9113; G0378; G0480; J0696; J1170; J2405; J2550; J2765; J3010; J7030; J7050; J7120

== ENCOUNTER 2020-07-16 18:51 | Emergency (ER) | payer MEDICARE, OTHER ==
[~2020-07-16] VITALS: Ht 167.6 cm; Wt 49.0 kg
[~2020-07-16 18:51] MED LIST changes: +ONDA4ODT; +TRAM50
[2020-07-16 19:34] LABS: BASOPHILS ABSOLUTE AUTO 0.03 K/mm3 (0.00-0.23); BASOPHILS PERCENT AUTO 0 % (0-2); EOSINOPHILS ABSOLUTE AUTO 0.21 K/mm3 (0.00-0.68); EOSINOPHILS PERCENT AUTO 3 % (0-6); Hematocrit 39.5 % (33.0-51.0); Hemoglobin 12.3 g/dL (11.5-16.0); IMMATURE GRAN ABSOLUTE AUTO 0.02 K/mm3 (0.00-0.10); IMMATURE GRAN PERCENT AUTO 0 % (0-1); LYMPHOCYTES ABSOLUTE AUTO 3.49 K/mm3 (0.84-5.20); LYMPHOCYTES PERCENT AUTO 41 % (21-46); MONOCYTES ABSOLUTE AUTO 0.64 K/mm3 (0.16-1.47); MONOCYTES PERCENT AUTO 8 % (4-13); Mean Corpuscular HGB 27.5 pg (26.0-34.0); Mean Corpuscular HGB Conc 31.1 g/dL (31.5-36.5); Mean Corpuscular Volume 88 fL (80-100); NEUTROPHILS ABSOLUTE AUTO 4.04 K/mm3 (1.96-9.15); NEUTROPHILS PERCENT AUTO 48 % (41-73); Platelet Count 331 K/mm3 (150-400); RDW Coefficient Variation 14.2 % (11.7-14.2); RDW Standard Deviation 45.8 fL (35.1-46.3); Red Blood Cell Count 4.47 M/mm3 (3.80-5.20); White Blood Cell Count 8.43 K/mm3 (4.00-11.30)
[2020-07-16 19:57] LABS: Alanine Aminotransfer (ALT/SGP 137 U/L (12-78); Albumin, Blood 3.2 g/dL (3.4-5.0); Albumin/Globulin Ratio 0.7 (0.8-1.8); Alk Phos 95 U/L (50-136); Anion Gap 4 mmol/L (6-16); Aspartate Aminotrans (AST/SGOT 99 U/L (12-37); Bilirubin, Total 0.2 mg/dL (0.1-1.0); Blood Urea Nitrogen 24 mg/dL (8-24); Bun/Creatinine Ratio 27.3 (12.0-20.0); CO2, Blood 27 mmol/L (21-32); Calcium, Blood 8.8 mg/dL (8.5-10.1); Chloride, Blood 108 mmol/L (98-108); Creatinine, Blood 0.88 mg/dL (0.40-1.00); Globulin, Blood 4.6 g/dL (2.2-4.0); Glomerular Filtration Rate >60 (60-); Glucose, Blood 92 mg/dL (70-99); Potassium, Blood 4.3 mmol/L (3.5-5.5); Sodium, Blood 139 mmol/L (136-145); Total Protein, Blood 7.8 g/dL (6.4-8.2)
[2020-07-16] MEDS ORDERED: LIOT25 PO (20:13)
[2020-07-16] MEDS ORDERED: OMEP20ER PO (20:13)
[2020-07-16] MEDS ORDERED: HYDSUL200 PO (20:14)
[2020-07-16] MEDS ORDERED: EUTHYROX50 MCG (20:14)
[2020-07-16] MEDS ORDERED: ASPI81CH PO (20:15)
[2020-07-16] MEDS ORDERED: CENTRUM SILVER1 EAC2 PO (20:15)
[2020-07-16] MEDS ORDERED: ACET500 PO (20:15)
[2020-07-16 20:33] LABS: Source, Urine Clean Catch
[2020-07-16 20:37] LABS: Bilirubin, Urine Neg (Neg); Blood, Urine 1+ (Neg); Glucose Qualitative, Urine Neg (Neg); Ketones, Urine Neg (Neg); Leukocyte Esterase, Urine 1+ (Neg); Nitrite, Urine Neg (Neg); Protein, Urine Neg (Neg); Urobilinogen, Urine NORM (Normal)
[2020-07-16 20:40] LABS: Appearance, Urine Clear (Clear); Color, Urine Yellow (P-Yellow)
[2020-07-16 20:48] LABS: Bacteria Few /hpf; Squamous Epithelial Cells Few /hpf (Few); White Blood Cells, Urine Rare /hpf (0-5)
[2020-07-16] MEDS ORDERED: SUCR1 PO (21:08)
[2020-07-16] MEDS ORDERED: Voltaren100 GM TOP (21:08)
== END 2020-07-16 21:23 | disposition home or self-care (01) ==
LOC: ER 18:51
PROVIDERS: Physician Assistant
DX: K21.9 Gastro-esophageal reflux disease without esophagitis (principal); M25.512 Pain in left shoulder; G89.29 Other chronic pain; R19.5 Other fecal abnormalities
CPT/HCPCS: 36415; 80053; 81001; 85025; 86850; 86900; 86901; 93005; 93010; 99283-25

== ENCOUNTER 2020-10-15 05:21 | Emergency (ER) | payer MEDICARE, OTHER ==
[~2020-10-15] VITALS: Ht 167.6 cm; Wt 49.9 kg
[~2020-10-15 05:21] MED LIST changes: +ACET500 PO; +ASPI81CH PO; +CENTRUM SILVER1 EAC2 PO; +EUTHYROX50 MCG; +SUCR1 PO; +Voltaren100 GM TOP
[2020-10-15] MEDS ORDERED: IVERMECTIN3 MG PO (05:39)
[2020-10-15] MEDS ORDERED: PERM5TC TOP (06:23)
[2020-10-15] MEDS ORDERED: DOXY100 PO (06:23)
== END 2020-10-15 07:02 | disposition home or self-care (01) ==
LOC: ER 05:21
DX: L03.114 Cellulitis of left upper limb (principal); L03.113 Cellulitis of right upper limb; L03.312 Cellulitis of back [any part except buttock and flank]; L03.313 Cellulitis of chest wall; L03.211 Cellulitis of face; E03.9 Hypothyroidism, unspecified; J45.909 Unspecified asthma, uncomplicated; Z79.899 Other long term (current) drug therapy; Z79.82 Long term (current) use of aspirin; Z91.030 Bee allergy status; Z91.041 Radiographic dye allergy status; Z88.8 Allergy status to other drugs, medicaments and biological substances; Z88.0 Allergy status to penicillin; Z88.2 Allergy status to sulfonamides; Z88.1 Allergy status to other antibiotic agents
CPT/HCPCS: 99282

== ENCOUNTER 2021-02-05 03:31 | Emergency (ER) | payer MEDICARE, OTHER ==
[~2021-02-05] VITALS: Ht 167.6 cm; Wt 47.6 kg
[~2021-02-05 03:31] MED LIST changes: +IVERMECTIN3 MG PO; +PERM5TC TOP
[2021-02-05] MEDS ORDERED: MUPIROCIN22 G2 TOP (06:22)
[2021-02-05] MEDS ORDERED: NEOPOLHCSU LEFTEAR (06:22)
[2021-02-05] MEDS ORDERED: SULTRIDS PO (06:22)
== END 2021-02-05 06:40 | disposition home or self-care (01) ==
LOC: ER 03:31
DX: S71.001A Unspecified open wound, right hip, initial encounter (principal); H60.92 Unspecified otitis externa, left ear; N39.0 Urinary tract infection, site not specified; E03.9 Hypothyroidism, unspecified; Z79.82 Long term (current) use of aspirin; Z91.030 Bee allergy status; Z91.041 Radiographic dye allergy status; Z88.0 Allergy status to penicillin; Z88.2 Allergy status to sulfonamides; Z79.899 Other long term (current) drug therapy; X58.XXXA Exposure to other specified factors, initial encounter
CPT/HCPCS: 99282

== ENCOUNTER → 2021-10-19 | Outpatient (CLI) | payer MEDICARE, OTHER ==
[~2021-10-19] MED LIST changes: +MUPIROCIN22 G2 TOP; +NEOPOLHCSU LEFTEAR; +SULTRIDS PO
== END | disposition home or self-care (01) ==
LOC: LAB SHORT 10:54 → LAB 10:54
DX: L08.0 Pyoderma (principal)
CPT/HCPCS: 87070; 87077; 87147; 87186; 87205

== ENCOUNTER 2021-10-21 15:36 | Emergency (ER) | payer MEDICARE, OTHER ==
[~2021-10-21] VITALS: Ht 167.6 cm; Wt 49.9 kg
[2021-10-21] MEDS ORDERED: DOXY100 PO (16:45)
== END 2021-10-21 16:50 | disposition home or self-care (01) ==
LOC: ER 15:36
DX: L03.114 Cellulitis of left upper limb (principal); E03.9 Hypothyroidism, unspecified; G43.909 Migraine, unspecified, not intractable, without status migrainosus; J45.909 Unspecified asthma, uncomplicated; Z91.030 Bee allergy status; Z91.048 Other nonmedicinal substance allergy status; Z88.0 Allergy status to penicillin; Z88.2 Allergy status to sulfonamides; Z88.1 Allergy status to other antibiotic agents; Z88.8 Allergy status to other drugs, medicaments and biological substances; Z79.82 Long term (current) use of aspirin; Z79.899 Other long term (current) drug therapy
CPT/HCPCS: 73110; 99283-25; A9270

== ENCOUNTER → 2021-12-13 | Outpatient (CLI) | payer MEDICARE, OTHER | END | disposition home or self-care (01) | LOC: LAB SHORT 19:04 | DX: L02.414 Cutaneous abscess of left upper limb (principal) | CPT/HCPCS: 87070; 87075; 87077; 87147; 87186; 87205 ==

== ENCOUNTER 2022-04-01 18:04 | Emergency (ER) | payer OTHER ==
[~2022-04-01] VITALS: Ht 167.6 cm; Wt 52.2 kg
[2022-04-01] MEDS ORDERED: CLIN300 PO (21:18)
== END 2022-04-01 21:31 | disposition home or self-care (01) ==
LOC: ER 18:04
DX: K02.9 Dental caries, unspecified (principal); K05.10 Chronic gingivitis, plaque induced; J02.9 Acute pharyngitis, unspecified; E03.9 Hypothyroidism, unspecified; J45.909 Unspecified asthma, uncomplicated; Z88.0 Allergy status to penicillin; Z88.8 Allergy status to other drugs, medicaments and biological substances; Z91.041 Radiographic dye allergy status; Z91.038 Other insect allergy status; Z79.82 Long term (current) use of aspirin; Z79.899 Other long term (current) drug therapy
CPT/HCPCS: A9270

== ENCOUNTER 2022-04-16 03:05 | Emergency (ER) | payer OTHER ==
[~2022-04-16] VITALS: Ht 170.2 cm; Wt 54.4 kg
[2022-04-16] MEDS ORDERED: PERIDEX15 ML MM (03:36)
[2022-04-16] MEDS ORDERED: IBU600 MG PO (03:36)
[2022-04-16] MEDS ORDERED: CLIN150 PO (03:36)
== END 2022-04-16 04:14 | disposition home or self-care (01) ==
LOC: ER 03:05
DX: K02.9 Dental caries, unspecified (principal); Z88.0 Allergy status to penicillin; Z88.2 Allergy status to sulfonamides; Z88.1 Allergy status to other antibiotic agents; Z91.041 Radiographic dye allergy status; Z91.038 Other insect allergy status; Z79.899 Other long term (current) drug therapy; J45.909 Unspecified asthma, uncomplicated
CPT/HCPCS: A9270

== ENCOUNTER → 2022-08-18 | Outpatient (CLI) | payer OTHER ==
[~2022-08-18] MED LIST changes: +IBU600 MG PO; +PERIDEX15 ML MM
== END | disposition home or self-care (01) ==
LOC: LAB 17:53 → LAB SHORT 17:53
DX: R30.0 Dysuria (principal)
CPT/HCPCS: 87077; 87086; 87186

== ENCOUNTER → 2023-09-17 | Outpatient (CLI) | payer OTHER | LOC: LAB 18:00 → LAB SHORT 18:00 | DX: L08.9 Local infection of the skin and subcutaneous tissue, unspecified (principal) | CPT/HCPCS: 87070; 87077; 87147; 87186; 87205 ==

== ENCOUNTER 2024-07-14 04:16 | Emergency (ER) | payer OTHER ==
[~2024-07-14] VITALS: Ht 167.6 cm; Wt 49.9 kg
[2024-07-14 05:12] LABS: BASOPHILS ABSOLUTE AUTO 0.03 K/mm3 (0.00-0.23); BASOPHILS PERCENT AUTO 0 % (0-2); EOSINOPHILS ABSOLUTE AUTO 0.18 K/mm3 (0.00-0.68); EOSINOPHILS PERCENT AUTO 1 % (0-6); Hematocrit 32.7 % (33.0-51.0); Hemoglobin 10.1 g/dL (11.5-16.0); IMMATURE GRAN ABSOLUTE AUTO 0.06 K/mm3 (0.00-0.10); IMMATURE GRAN PERCENT AUTO 1 % (0-1); LYMPHOCYTES ABSOLUTE AUTO 2.95 K/mm3 (0.84-5.20); LYMPHOCYTES PERCENT AUTO 24 % (21-46); MONOCYTES ABSOLUTE AUTO 0.95 K/mm3 (0.16-1.47); MONOCYTES PERCENT AUTO 8 % (4-13); Mean Corpuscular HGB 24.6 pg (26.0-34.0); Mean Corpuscular HGB Conc 30.9 g/dL (31.5-36.5); Mean Corpuscular Volume 80 fL (80-100); Mean Platelet Volume 9.4 fL (9.1-12.4); NEUTROPHILS ABSOLUTE AUTO 8.38 K/mm3 (1.96-9.15); NEUTROPHILS PERCENT AUTO 67 % (41-73); Platelet Count 403 K/mm3 (150-400); RDW Coefficient Variation 14.6 % (11.7-14.2); RDW Standard Deviation 42.4 fL (35.1-46.3); Red Blood Cell Count 4.11 M/mm3 (3.80-5.20); White Blood Cell Count 12.55 K/mm3 (4.00-11.30)
[2024-07-14 05:41] LABS: Acetaminophen, Random 2.9 ug/mL (10.0-30.0); Alanine Aminotransfer (ALT/SGP 46 U/L (12-78); Albumin, Blood 3.3 g/dL (3.4-5.0); Albumin/Globulin Ratio 0.8 (0.8-1.8); Alk Phos 113 U/L (50-136); Anion Gap 12 mmol/L (3-11); Aspartate Aminotrans (AST/SGOT 74 U/L (12-37); Bilirubin, Total 0.5 mg/dL (0.1-1.0); Blood Urea Nitrogen 20 mg/dL (8-24); Bun/Creatinine Ratio 25.8 (12.0-20.0); CO2, Blood 25 mmol/L (21-32); Calcium, Blood 9.1 mg/dL (8.5-10.1); Chloride, Blood 106 mmol/L (98-108); Creatinine, Blood 0.78 mg/dL (0.40-1.00); Ethanol (Alcohol), Blood, Med <3 mg/dL; Globulin, Blood 4.1 g/dL (2.2-4.0); Glomerular Filtration Rate 86 (60-); Glucose, Blood 84 mg/dL (70-99); Potassium, Blood 2.9 mmol/L (3.5-5.5); Salicylate <1.7 mg/dL (2.8-20.0); Sodium, Blood 140 mmol/L (136-145); Total Protein, Blood 7.4 g/dL (6.4-8.2)
[2024-07-14 06:45] VITALS: BP 138/78
[2024-07-14] MEDS ORDERED: NARCAN4 M1 (07:55)
== END 2024-07-14 08:19 | disposition home or self-care (01) ==
LOC: ER 04:16
PROVIDERS: Emergency Medicine
DX: T40.411A Poisoning by fentanyl or fentanyl analogs, accidental (unintentional), initial encounter (principal); E03.9 Hypothyroidism, unspecified; G43.909 Migraine, unspecified, not intractable, without status migrainosus; J45.909 Unspecified asthma, uncomplicated; Z79.82 Long term (current) use of aspirin; Z79.899 Other long term (current) drug therapy; Z91.038 Other insect allergy status; Z91.041 Radiographic dye allergy status; Z88.0 Allergy status to penicillin; Z88.2 Allergy status to sulfonamides; Z88.1 Allergy status to other antibiotic agents; Z88.8 Allergy status to other drugs, medicaments and biological substances
CPT/HCPCS: 71045; 80053; 80320; 82947; 84484; 85025; 93005; 93010; 99285-25; G0480

== ENCOUNTER 2024-12-11 16:22 | Emergency (ER) | payer OTHER ==
[~2024-12-11] VITALS: Ht 167.6 cm; Wt 47.6 kg
[~2024-12-11 16:22] MED LIST changes: +NARCAN4 M1
[2024-12-11 17:24] LABS: BASOPHILS ABSOLUTE AUTO 0.03 K/mm3 (0.00-0.23); BASOPHILS PERCENT AUTO 0 % (0-2); EOSINOPHILS ABSOLUTE AUTO 0.12 K/mm3 (0.00-0.68); EOSINOPHILS PERCENT AUTO 2 % (0-6); Hematocrit 35.7 % (33.0-51.0); IMMATURE GRAN ABSOLUTE AUTO 0.03 K/mm3 (0.00-0.10); IMMATURE GRAN PERCENT AUTO 0 % (0-1); LYMPHOCYTES ABSOLUTE AUTO 3.01 K/mm3 (0.84-5.20); LYMPHOCYTES PERCENT AUTO 38 % (21-46); MONOCYTES ABSOLUTE AUTO 0.57 K/mm3 (0.16-1.47); MONOCYTES PERCENT AUTO 7 % (4-13); Mean Corpuscular HGB 24.3 pg (26.0-34.0); Mean Corpuscular HGB Conc 30.8 g/dL (31.5-36.5); Mean Corpuscular Volume 79 fL (80-100); Mean Platelet Volume 9.2 fL (9.1-12.4); NEUTROPHILS ABSOLUTE AUTO 4.12 K/mm3 (1.96-9.15); NEUTROPHILS PERCENT AUTO 52 % (41-73); Platelet Count 460 K/mm3 (150-400); RDW Coefficient Variation 16.2 % (11.7-14.2); RDW Standard Deviation 46.1 fL (35.1-46.3); Red Blood Cell Count 4.52 M/mm3 (3.80-5.20); White Blood Cell Count 7.88 K/mm3 (4.00-11.30)
[2024-12-11 17:42] LABS: Albumin, Blood 3.5 g/dL (3.4-5.0); Albumin/Globulin Ratio 0.7 (0.8-1.8); Bilirubin, Total 0.3 mg/dL (0.1-1.0); Bun/Creatinine Ratio 22.3 (12.0-20.0); Calcium, Blood 9.8 mg/dL (8.5-10.1); Creatinine, Blood 0.67 mg/dL (0.40-1.00); Globulin, Blood 4.8 g/dL (2.2-4.0); Potassium, Blood 3.8 mmol/L (3.5-5.5); Total Protein, Blood 8.3 g/dL (6.4-8.2)
[2024-12-11] MEDS ORDERED: Ketorolac Tromethamine 15mg Vial IV ONE (18:50)
[2024-12-11] MEDS ORDERED: DiphenhydrAMINE HCl 50 MG/ML 1ML Vial IV ONE (18:50)
[2024-12-11] MEDS ORDERED: Proparacaine 0.5% Opth Soln 15 ML BTL RIGHTEYE ONE (18:50)
[2024-12-11] MEDS ORDERED: MethylPREDNISolone Sod Succ 125 MG Vial IV ONE (18:50)
[2024-12-11] MEDS ORDERED: Fluorescein Sod 1MG Opth Strips RIGHTEYE ONE (19:20)
[2024-12-11] MEDS ORDERED: CefTRIAXone Sodium 1,000 MG in NS 100 ML IV ONE (20:05)
[2024-12-11] MEDS ORDERED: CEFP200 PO (20:13)
[2024-12-11] MEDS ORDERED: IBUP600 PO (20:13)
[2024-12-11 20:27] VITALS: BP 131/82
== END 2024-12-11 21:00 | disposition home or self-care (01) ==
LOC: ER 16:22
PROVIDERS: Physician Assistant
DX: L03.213 Periorbital cellulitis (principal); E03.9 Hypothyroidism, unspecified; G43.909 Migraine, unspecified, not intractable, without status migrainosus; J45.909 Unspecified asthma, uncomplicated; Z79.82 Long term (current) use of aspirin; Z79.899 Other long term (current) drug therapy; Z91.041 Radiographic dye allergy status; Z88.0 Allergy status to penicillin; Z88.2 Allergy status to sulfonamides; Z88.1 Allergy status to other antibiotic agents; Z91.030 Bee allergy status; Z88.8 Allergy status to other drugs, medicaments and biological substances
CPT/HCPCS: 70481; 80053; 85025; 96374-59; 96375; 99284-25; A9270; A9270-GY; J0696; J1200; J1885; J2919; Q9967

== ENCOUNTER 2024-12-14 03:40 | Inpatient (IN) | payer OTHER ==
[~2024-12-14] VITALS: Ht 167.6 cm; Wt 50.6 kg
[~2024-12-14 03:40] MED LIST changes: +CEFP200 PO; +IBUP600 PO
[2024-12-14] MEDS ORDERED: Morphine Sulfate 4 MG/1 ML Injection IV ONE (04:15)
[2024-12-14] MEDS ORDERED: DiphenhydrAMINE HCl 50 MG/ML 1ML Vial IV ONE (04:30)
[2024-12-14] MEDS ORDERED: MethylPREDNISolone Sod Succ 125 MG Vial IV ONE (04:30)
[2024-12-14 04:39] LABS: BASOPHILS ABSOLUTE AUTO 0.05 K/mm3 (0.00-0.23); BASOPHILS PERCENT AUTO 1 % (0-2); EOSINOPHILS ABSOLUTE AUTO 0.11 K/mm3 (0.00-0.68); EOSINOPHILS PERCENT AUTO 1 % (0-6); Hematocrit 33.5 % (33.0-51.0); Hemoglobin 10.4 g/dL (11.5-16.0); IMMATURE GRAN ABSOLUTE AUTO 0.02 K/mm3 (0.00-0.10); IMMATURE GRAN PERCENT AUTO 0 % (0-1); LYMPHOCYTES ABSOLUTE AUTO 3.88 K/mm3 (0.84-5.20); LYMPHOCYTES PERCENT AUTO 41 % (21-46); MONOCYTES ABSOLUTE AUTO 0.82 K/mm3 (0.16-1.47); MONOCYTES PERCENT AUTO 9 % (4-13); Mean Corpuscular HGB 24.5 pg (26.0-34.0); Mean Corpuscular Volume 79 fL (80-100); Mean Platelet Volume 9.8 fL (9.1-12.4); NEUTROPHILS ABSOLUTE AUTO 4.49 K/mm3 (1.96-9.15); NEUTROPHILS PERCENT AUTO 48 % (41-73); Platelet Count 461 K/mm3 (150-400); RDW Coefficient Variation 16.2 % (11.7-14.2); RDW Standard Deviation 46.1 fL (35.1-46.3); Red Blood Cell Count 4.24 M/mm3 (3.80-5.20); White Blood Cell Count 9.37 K/mm3 (4.00-11.30)
[2024-12-14 05:01] LABS: Albumin, Blood 3.5 g/dL (3.4-5.0); Albumin/Globulin Ratio 0.8 (0.8-1.8); Bilirubin, Total 0.2 mg/dL (0.1-1.0); Bun/Creatinine Ratio 25.7 (12.0-20.0); Creatinine, Blood 0.7 mg/dL (0.40-1.00); Globulin, Blood 4.2 g/dL (2.2-4.0); Potassium, Blood 3.8 mmol/L (3.5-5.5); Total Protein, Blood 7.7 g/dL (6.4-8.2)
[2024-12-14] MEDS ORDERED: CeFAZolin Sodium 1,000 MG in NS 50 ML IV ONE (08:40)
[2024-12-14] MEDS ORDERED: Vancomycin HCL 1,250 MG in NS 250 ML IV ONE (08:45)
[2024-12-14] MEDS ORDERED: OMEP20ER (10:20)
[2024-12-14] MEDS ORDERED: FLU VACC TS2024-25(6MOS UP)/PF 45 MCG/0.5 ML SYRINGE IM PRN (12:40)
[2024-12-14] MEDS ORDERED: Ibuprofen 600 MG Tab PO PRN (12:40)
[2024-12-14] MEDS ORDERED: Docusate Sodium/Senna 1 Tab PO PRN (12:45)
[2024-12-14] MEDS ORDERED: OxyCODONE HCL 5 MG TAB PO PRN (12:45)
[2024-12-14] MEDS ORDERED: Ondansetron 4 MG SoluTab MM PRN (12:45)
[2024-12-14] MEDS ORDERED: Acetaminophen 325 MG TABLET PO PRN (12:45)
[2024-12-14] MEDS ORDERED: Omeprazole 20 MG CapCR PO SCH (13:00)
[2024-12-14 14:19] VITALS: BP 122/72
[2024-12-14] MEDS ORDERED: NS 250 ML IV PRN (15:40)
[2024-12-14] MEDS ORDERED: CeFAZolin Sodium 1,000 MG in NS 50 ML IV SCH (16:00)
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
[2024-12-14 20:15] VITALS: BP 121/80
[2024-12-14] MEDS ORDERED: Lactobacil 2-S.Thermo-Bifido 1 1 Cap PO SCH (21:00)
[2024-12-14] MEDS ORDERED: Vancomycin HCL 1,000 MG in NS 250 ML IV SCH (21:00)
[2024-12-15 02:22] VITALS: BP 112/85
[2024-12-15] MEDS ORDERED: HyDROXyzine HCl 10 MG Tab PO PRN (02:40)
[2024-12-15] MEDS ORDERED: Aspirin 81 MG Chew PO PRN (02:40)
[2024-12-15 04:16] VITALS: BP 109/69
[2024-12-15 05:51] LABS: BASOPHILS ABSOLUTE AUTO 0.04 K/mm3 (0.00-0.23); BASOPHILS PERCENT AUTO 1 % (0-2); EOSINOPHILS ABSOLUTE AUTO 0.11 K/mm3 (0.00-0.68); EOSINOPHILS PERCENT AUTO 1 % (0-6); Hematocrit 32.3 % (33.0-51.0); IMMATURE GRAN ABSOLUTE AUTO 0.01 K/mm3 (0.00-0.10); IMMATURE GRAN PERCENT AUTO 0 % (0-1); LYMPHOCYTES ABSOLUTE AUTO 4.32 K/mm3 (0.84-5.20); LYMPHOCYTES PERCENT AUTO 51 % (21-46); MONOCYTES ABSOLUTE AUTO 0.76 K/mm3 (0.16-1.47); MONOCYTES PERCENT AUTO 9 % (4-13); Mean Corpuscular HGB 24.3 pg (26.0-34.0); Mean Corpuscular Volume 79 fL (80-100); Mean Platelet Volume 9.3 fL (9.1-12.4); NEUTROPHILS ABSOLUTE AUTO 3.28 K/mm3 (1.96-9.15); NEUTROPHILS PERCENT AUTO 39 % (41-73); Platelet Count 417 K/mm3 (150-400); RDW Coefficient Variation 16.1 % (11.7-14.2); RDW Standard Deviation 46.2 fL (35.1-46.3); Red Blood Cell Count 4.11 M/mm3 (3.80-5.20); White Blood Cell Count 8.52 K/mm3 (4.00-11.30)
[2024-12-15 06:22] LABS: Albumin, Blood 3.1 g/dL (3.4-5.0); Albumin/Globulin Ratio 0.8 (0.8-1.8); Bilirubin, Total 0.2 mg/dL (0.1-1.0); Calcium, Blood 9.1 mg/dL (8.5-10.1); Creatinine, Blood 0.61 mg/dL (0.40-1.00); Globulin, Blood 3.8 g/dL (2.2-4.0); Potassium, Blood 3.4 mmol/L (3.5-5.5); Total Protein, Blood 6.9 g/dL (6.4-8.2)
--- NOTE | 2024-12-15 07:07 | NUR ---
Rn shift summary: Patient is alert and oriented x3-4. Pt does have presured speech at times. She states she is a "medium" and can see a "man in the room, who lived in the early 1900's, a lumberjack type man, who is and waiting for his that has moved on". Pt is here for periorbital cellulitis of the left eye. Sclerais red, sl puffy under eye, maybe sl pink. Pt does c/o eye pain, 9/10, victoria 5m given x1 with good relief.Also has some blurry vision in that rt eye. 0220 Pt did c/o chest pain/anxiety of left rib cage. Pt medicated with ASA 81mg, atarax with relief over time. Patient did walk to BR, she is slightly unsteady and needs SBA. Patient states she has a rectum that prolapes and she pushes it back in, she states it is very painful. Pt has gastric problems and states she has difficulty obsorbing food. Pt eats frequent small snacks. Pt uses call light appropriately. Pt did finally sleep hard the last few hours of this shift.
[2024-12-15] MEDS ORDERED: Potassium Chloride 10 Meq Tablet SA PO ONE (08:05)
[2024-12-15 08:10] VITALS: BP 112/70
[2024-12-15] MEDS ORDERED: Enoxaparin 40 MG/0.4 ML SYR SC SCH (09:00)
[2024-12-15] MEDS ORDERED: Aspirin 81 MG Chew PO SCH (09:00)
--- NOTE | 2024-12-15 10:52 | NUR ---
JEFF IS SPEAKING WITH HUMZA, FROM THE [facility] [place] [facility], TO DISCUSS FOOD ACCESS AT HOME.
[2024-12-15 15:26] VITALS: BP 123/72
[2024-12-15 20:22] VITALS: BP 110/68
--- NOTE | 2024-12-15 20:25 | NUR ---
JEFF IS A & O X4, INDEPENDENT IN THE ROOM. CONTINENT OF URINE. RECEIVING IV ANTIBIOTICS FOR RIGHT ORBITAL CELLULITIS. SHE REPORTS INCREASING CHANGES TO HER VISION IN HER RIGHT EYE. SHE STATES THAT HER VISION IS BLURRY, AND THAT WHEN SHE WAS ADMITTED SHE WAS ABLE TO SEE THE TV ACROSS THE ROOM BUT NOW SHE IS HAVING TROUBLE WATCHING SHOWS ON HER LAP TOP SITTING ON HER BEDSIDE TABLE. HER SCLERA IS REDDENED IN THE RIGHT EYE, WITH SLIGHT INFLAMMATION AROUND THE EYE, BUT NO INCREASED REDNESS OR DRAINAGE IS NOTED. SHE RATES HER PAIN 8/10 CONSISTENTLY, AND RECEIVED ONE PRN PAIN MED DURING DAY SHIFT. VSS. ROOM AIR. USES CALL LIGHT APPROPRIATELY. PT DOES REPORT THAT SHE IS A MEDIUM, AND THAT SHE SPEAKS TO THE SPIRITS OF THE . HISTORY OF ANXIETY, AND PTSD. PT DISCUSSED WITH THIS RN ONE PREVIOUS OVERDOSE EPISODE WHERE SHE WAS TREATED AT [facility].
[2024-12-15 20:48] LABS: Vancomycin, Trough 15.8 ug/mL (5.0-10.0)
[2024-12-16 04:01] VITALS: BP 104/66
--- NOTE | 2024-12-16 05:13 | NUR ---
[facility]OCOA ROOM OPERATOR SUMMARY: PT ADMITTED FOR RIGHT ORBITAL CELLULITIS. FULL CODE. PT IS A&O X4. INDEPENDENT IN ROOM. IV ABX CONTINUE FOR CELLULITIS. NEW 22G PIV PLACED TO PAULETTE BY SEWAGE DISPOSAL WORKER. NO ADVERSE REACTIONS TO ABX NOTED. PT REPORTS INCREASING CHANGES TO HER VISION IN HER RIGHT EYE. PT REPORTS TAHT HER BLURRED VISION WORSENING SINCE ADMIT. PT REPORTS CHRONIC PAIN AND MIGRAINES, PAIN IS WORSENED AROUND RIGHT EYE AND IS AROUND 8/10. PT MEDICATED X2 WITH PRN OXYCODONE 5MG PER EMAR ORDER; EFFECTIVE IN "TAKING THE EDGE OFF" PER PT. PT REPORTS SHE IS A MEDIUM AND SEES / SPEAKS TO THE AND LIKES TO WATCH PARANORMAL TV SHOWS. CARES CONTINUE ORDERED. CALL LIGHT IN REACH. BED IN LOWEST POSITION.
[2024-12-16 07:06] LABS: BASOPHILS ABSOLUTE AUTO 0.06 K/mm3 (0.00-0.23); BASOPHILS PERCENT AUTO 1 % (0-2); EOSINOPHILS ABSOLUTE AUTO 0.21 K/mm3 (0.00-0.68); EOSINOPHILS PERCENT AUTO 3 % (0-6); Hematocrit 34.8 % (33.0-51.0); Hemoglobin 10.5 g/dL (11.5-16.0); IMMATURE GRAN ABSOLUTE AUTO 0.01 K/mm3 (0.00-0.10); IMMATURE GRAN PERCENT AUTO 0 % (0-1); LYMPHOCYTES ABSOLUTE AUTO 4.91 K/mm3 (0.84-5.20); LYMPHOCYTES PERCENT AUTO 63 % (21-46); MONOCYTES ABSOLUTE AUTO 0.49 K/mm3 (0.16-1.47); MONOCYTES PERCENT AUTO 6 % (4-13); Mean Corpuscular HGB 24.5 pg (26.0-34.0); Mean Corpuscular HGB Conc 30.2 g/dL (31.5-36.5); Mean Corpuscular Volume 81 fL (80-100); Mean Platelet Volume 10.2 fL (9.1-12.4); NEUTROPHILS ABSOLUTE AUTO 2.15 K/mm3 (1.96-9.15); NEUTROPHILS PERCENT AUTO 27 % (41-73); Platelet Count 420 K/mm3 (150-400); RDW Coefficient Variation 16.5 % (11.7-14.2); RDW Standard Deviation 48.8 fL (35.1-46.3); Red Blood Cell Count 4.29 M/mm3 (3.80-5.20); White Blood Cell Count 7.83 K/mm3 (4.00-11.30)
[2024-12-16 07:21] LABS: Bun/Creatinine Ratio 25.5 (12.0-20.0); Calcium, Blood 8.7 mg/dL (8.5-10.1); Creatinine, Blood 0.75 mg/dL (0.40-1.00); Potassium, Blood 3.1 mmol/L (3.5-5.5)
[2024-12-16 07:30] VITALS: BP 111/73
[2024-12-16 14:52] VITALS: BP 131/70
[2024-12-16] MEDS ORDERED: Potassium Chloride 20 MEQ TabCR PO ONE (16:30)
--- NOTE | 2024-12-16 18:08 | NUR ---
SHIFT SUMMARY PT IS A/OX4, INDEPENDENT IN THE ROOM. NO ACUTE CHANGES THROUGHOUT THIS SHIFT. PT ASSESSED BY THOMAS, THE DENTAL HYGIENIST, AND FOUND SOME EXTENSIVE DENTAL ISSUES. PT MEDICATED WITH OXYCODONE X2 THIS SHIFT FOR PAIN TO THE RIGHT EYE/FACE PER MAR. CONTINUING IV ANTIBIOTICS. PT REPORTING DECREASING VISUAL ACUITY SINCE ADMIT.
[2024-12-16 20:03] VITALS: BP 120/70
[2024-12-17 03:57] VITALS: BP 121/74
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
[2024-12-17 05:58] LABS: BASOPHILS ABSOLUTE AUTO 0.05 K/mm3 (0.00-0.23); BASOPHILS PERCENT AUTO 1 % (0-2); EOSINOPHILS ABSOLUTE AUTO 0.32 K/mm3 (0.00-0.68); EOSINOPHILS PERCENT AUTO 5 % (0-6); Hematocrit 33.8 % (33.0-51.0); Hemoglobin 10.2 g/dL (11.5-16.0); IMMATURE GRAN ABSOLUTE AUTO 0.01 K/mm3 (0.00-0.10); IMMATURE GRAN PERCENT AUTO 0 % (0-1); LYMPHOCYTES ABSOLUTE AUTO 4.11 K/mm3 (0.84-5.20); LYMPHOCYTES PERCENT AUTO 61 % (21-46); MONOCYTES ABSOLUTE AUTO 0.63 K/mm3 (0.16-1.47); MONOCYTES PERCENT AUTO 9 % (4-13); Mean Corpuscular HGB 24.2 pg (26.0-34.0); Mean Corpuscular HGB Conc 30.2 g/dL (31.5-36.5); Mean Corpuscular Volume 80 fL (80-100); Mean Platelet Volume 9.7 fL (9.1-12.4); NEUTROPHILS ABSOLUTE AUTO 1.67 K/mm3 (1.96-9.15); NEUTROPHILS PERCENT AUTO 25 % (41-73); Platelet Count 407 K/mm3 (150-400); RDW Coefficient Variation 16.1 % (11.7-14.2); RDW Standard Deviation 47.1 fL (35.1-46.3); Red Blood Cell Count 4.22 M/mm3 (3.80-5.20); White Blood Cell Count 6.79 K/mm3 (4.00-11.30)
[2024-12-17 06:11] LABS: Calcium, Blood 9.4 mg/dL (8.5-10.1); Creatinine, Blood 0.73 mg/dL (0.40-1.00); Potassium, Blood 3.9 mmol/L (3.5-5.5)
[2024-12-17 07:36] VITALS: BP 94/54
[2024-12-17 14:29] VITALS: BP 110/65
[2024-12-17] MEDS ORDERED: Clindamycin 900mg in D5W 50ML 50 ML IV SCH (16:00)
--- NOTE | 2024-12-17 18:38 | NUR ---
SHIFT SUMMARY PT AOX4, COOPERATIVE, ABLE TO MAKE NEEDS KNOWN. PT HAS CALLED LITTLE THIS SHIFT, MAINLY FOR SNACKS AND PAIN MANAGEMENT. CONTINUING ANTIBIOTICS FOR PERIORBITAL CELLUTLITIS. NO OTHER ACUTE EVENTS TOOK PLACE THIS SHIFT. BED IN LOWEST POSITION, CALL LIGHT WITHIN REACH.
[2024-12-17 21:11] LABS: Vancomycin, Trough 18.3 ug/mL (5.0-10.0)
[2024-12-17 21:50] VITALS: BP 117/69
[2024-12-18 06:01] LABS: BASOPHILS ABSOLUTE AUTO 0.05 K/mm3 (0.00-0.23); BASOPHILS PERCENT AUTO 1 % (0-2); EOSINOPHILS ABSOLUTE AUTO 0.31 K/mm3 (0.00-0.68); EOSINOPHILS PERCENT AUTO 5 % (0-6); Hematocrit 30.8 % (33.0-51.0); Hemoglobin 9.4 g/dL (11.5-16.0); IMMATURE GRAN ABSOLUTE AUTO 0.02 K/mm3 (0.00-0.10); IMMATURE GRAN PERCENT AUTO 0 % (0-1); LYMPHOCYTES ABSOLUTE AUTO 3.83 K/mm3 (0.84-5.20); LYMPHOCYTES PERCENT AUTO 60 % (21-46); MONOCYTES ABSOLUTE AUTO 0.58 K/mm3 (0.16-1.47); MONOCYTES PERCENT AUTO 9 % (4-13); Mean Corpuscular HGB 24.5 pg (26.0-34.0); Mean Corpuscular HGB Conc 30.5 g/dL (31.5-36.5); Mean Corpuscular Volume 80 fL (80-100); Mean Platelet Volume 9.9 fL (9.1-12.4); NEUTROPHILS ABSOLUTE AUTO 1.55 K/mm3 (1.96-9.15); NEUTROPHILS PERCENT AUTO 25 % (41-73); Platelet Count 372 K/mm3 (150-400); RDW Coefficient Variation 16.2 % (11.7-14.2); RDW Standard Deviation 47.3 fL (35.1-46.3); Red Blood Cell Count 3.83 M/mm3 (3.80-5.20); White Blood Cell Count 6.34 K/mm3 (4.00-11.30)
[2024-12-18 06:13] LABS: Bun/Creatinine Ratio 24.1 (12.0-20.0); Calcium, Blood 8.3 mg/dL (8.5-10.1); Creatinine, Blood 0.75 mg/dL (0.40-1.00); Potassium, Blood 3.6 mmol/L (3.5-5.5)
[2024-12-18 06:16] VITALS: BP 111/69
[2024-12-18 07:55] VITALS: BP 120/72
--- NOTE | 2024-12-18 10:02 | NUR ---
pt laying in bed awake a/ox4, pleasant and grateful for care, follows commands well, report bad pain in legs with cramping, lungs are clear t/o, resp even and unlabored, no cough noted, hrr, no edema noted, ppp+2, cap refill <3 sec, vs stable, afebrile, piv to esthela site is clear and patent, btx4, abd flat soft nontender, voids without diff, skin c/w/d, maew, rain, call light in reach.
[2024-12-18] MEDS ORDERED: Ketorolac Tromethamine 30mg Vial IV PRN (12:30)
[2024-12-18] MEDS ORDERED: Gabapentin 100 MG Cap PO SCH (14:00)
[2024-12-18 15:27] VITALS: BP 123/70
--- NOTE | 2024-12-18 18:23 | NUR ---
pt resting most of the day, she recieved a dose of toradol for pain, states it helped and allowed her to sleep, no further changes this shift, call light in reach.
[2024-12-18 19:19] VITALS: BP 121/69
[2024-12-19 03:22] VITALS: BP 119/71
--- NOTE | 2024-12-19 05:20 | NUR ---
SHIFT SUMMARY PT CONTINUES TO HAVE BLURRY VISION WITH "FLOATERS" TO RIGHT EYE. SOME SWELLING NOTED TO RIGHT EYE/FACE. MEDICATED FOR PAIN PER EMAR. PT SLEPT INTERMITTENTLY THROUGH THE NIGHT. IV ANTIBIOTICS CONTINUE. BED IN LOWEST POSITION, CALL LIGHT WITHIN REACH, SIDERAILS UP X2.
[2024-12-19 06:17] LABS: BASOPHILS ABSOLUTE AUTO 0.06 K/mm3 (0.00-0.23); BASOPHILS PERCENT AUTO 1 % (0-2); EOSINOPHILS ABSOLUTE AUTO 0.34 K/mm3 (0.00-0.68); EOSINOPHILS PERCENT AUTO 6 % (0-6); Hematocrit 31.7 % (33.0-51.0); Hemoglobin 9.7 g/dL (11.5-16.0); IMMATURE GRAN ABSOLUTE AUTO 0.03 K/mm3 (0.00-0.10); IMMATURE GRAN PERCENT AUTO 1 % (0-1); LYMPHOCYTES PERCENT AUTO 51 % (21-46); MONOCYTES ABSOLUTE AUTO 0.54 K/mm3 (0.16-1.47); MONOCYTES PERCENT AUTO 9 % (4-13); Mean Corpuscular HGB 24.8 pg (26.0-34.0); Mean Corpuscular HGB Conc 30.6 g/dL (31.5-36.5); Mean Corpuscular Volume 81 fL (80-100); Mean Platelet Volume 9.9 fL (9.1-12.4); NEUTROPHILS ABSOLUTE AUTO 1.91 K/mm3 (1.96-9.15); NEUTROPHILS PERCENT AUTO 33 % (41-73); Platelet Count 330 K/mm3 (150-400); RDW Coefficient Variation 16.3 % (11.7-14.2); RDW Standard Deviation 47.9 fL (35.1-46.3); Red Blood Cell Count 3.91 M/mm3 (3.80-5.20); White Blood Cell Count 5.88 K/mm3 (4.00-11.30)
[2024-12-19 06:42] LABS: Bun/Creatinine Ratio 33.4 (12.0-20.0); Calcium, Blood 8.5 mg/dL (8.5-10.1); Creatinine, Blood 0.63 mg/dL (0.40-1.00); Potassium, Blood 3.7 mmol/L (3.5-5.5)
[2024-12-19 08:02] VITALS: BP 113/67
[2024-12-19] MEDS ORDERED: CLIN15SU PO (10:56)
--- NOTE | 2024-12-19 13:12 | NUR ---
PT DISCHARGED TO HOME. SON AT BEDSIDE AT TIME OF DISCHARGE. PT PROVIDED WITH MEDICAL RECORDS TO BE GIVEN TO DR FABRICE ANDERSON. PT ALSO PROVIDED WITH AND EDUCATED ON DISCHARGE INSTRUCTIONS. MEDICATIONS FAXED TO [facility]. ALL VALUABLES RETURNED AND SENT HOME WITH THE PT.
== END 2024-12-19 12:40 | disposition home or self-care (01) | DRG 603 ==
LOC: ER 03:40 → MEDS 13:27 → ENPENDDIS 12-19 10:49 → MEDS 12-19 12:40
PROVIDERS: Student in an Organized Health Care Education/Training Program; ADMIT Family Medicine
DX: L03.213 Periorbital cellulitis (principal); G43.909 Migraine, unspecified, not intractable, without status migrainosus; G89.4 Chronic pain syndrome; J45.909 Unspecified asthma, uncomplicated; D64.9 Anemia, unspecified; E87.6 Hypokalemia; K04.7 Periapical abscess without sinus; D75.838 Other thrombocytosis; E03.9 Hypothyroidism, unspecified; K91.1 Postgastric surgery syndromes; Z86.14 Personal history of Methicillin resistant Staphylococcus aureus infection; Z90.710 Acquired absence of both cervix and uterus; Z90.49 Acquired absence of other specified parts of digestive tract; Z88.2 Allergy status to sulfonamides; Z88.0 Allergy status to penicillin; Z88.1 Allergy status to other antibiotic agents; Z91.041 Radiographic dye allergy status; Z88.8 Allergy status to other drugs, medicaments and biological substances; Z79.82 Long term (current) use of aspirin; Z79.899 Other long term (current) drug therapy
CPT/HCPCS: 36415; 70481; 80048; 80053; 80202; 83735; 85025; 96365-59; 96366; 96367; 96375; 99284-25; A9270; J0690; J1200; J1650; J1885; J2270; J2919; J3370; J7050; Q9967

== ENCOUNTER 2025-06-13 21:52 | Emergency (ER) | payer MEDICARE, OTHER ==
[~2025-06-13] VITALS: Ht 167.6 cm; Wt 47.6 kg
[~2025-06-13 21:52] MED LIST changes: +CLIN15SU PO; +OMEP20ER
[2025-06-13 22:59] LABS: BASOPHILS ABSOLUTE AUTO 0.03 K/mm3 (0.00-0.23); BASOPHILS PERCENT AUTO 0 % (0-2); EOSINOPHILS ABSOLUTE AUTO 0.02 K/mm3 (0.00-0.68); EOSINOPHILS PERCENT AUTO 0 % (0-6); Hematocrit 36.9 % (33.0-51.0); Hemoglobin 11.3 g/dL (11.5-16.0); IMMATURE GRAN ABSOLUTE AUTO 0.04 K/mm3 (0.00-0.10); IMMATURE GRAN PERCENT AUTO 0 % (0-1); LYMPHOCYTES ABSOLUTE AUTO 1.69 K/mm3 (0.84-5.20); LYMPHOCYTES PERCENT AUTO 16 % (21-46); MONOCYTES ABSOLUTE AUTO 0.84 K/mm3 (0.16-1.47); MONOCYTES PERCENT AUTO 8 % (4-13); Mean Corpuscular HGB Conc 30.6 g/dL (31.5-36.5); Mean Corpuscular Volume 80 fL (80-100); NEUTROPHILS ABSOLUTE AUTO 7.70 K/mm3 (1.96-9.15); NEUTROPHILS PERCENT AUTO 75 % (41-73); NRBC ABSOLUTE 0.00 K/mm3 (0.00-0.02); NRBC Auto 0.0 /100 WBC (0.0-0.2); Platelet Count 392 K/mm3 (150-400); RDW Coefficient Variation 17.4 % (11.7-14.2); RDW Standard Deviation 50.8 fL (35.1-46.3)
[2025-06-13 23:21] LABS: Alanine Aminotransfer (ALT/SGP 19.0 U/L (12-78); Albumin, Blood 3.2 g/dL (3.4-5.0); Albumin/Globulin Ratio 0.7 (0.8-1.8); Anion Gap 11.0 mmol/L (3-11); Aspartate Aminotrans (AST/SGOT 16.0 U/L (12-37); Bilirubin, Total 0.5 mg/dL (0.1-1.0); Blood Urea Nitrogen 23.0 mg/dL (8-24); CO2, Blood 25.0 mmol/L (21-32); Calcium, Blood 9.2 mg/dL (8.5-10.1); Chloride, Blood 102.0 mmol/L (98-108); Creatinine, Blood 1.4 mg/dL (0.40-1.00); Globulin, Blood 4.7 g/dL (2.2-4.0); Glucose, Blood 116.0 mg/dL (70-99); Potassium, Blood 3.9 mmol/L (3.5-5.5); Sodium, Blood 134.0 mmol/L (136-145); Total Protein, Blood 7.9 g/dL (6.4-8.2)
[2025-06-13] MEDS ORDERED: NS 1,000 ML IV SCH (23:25)
[2025-06-13] MEDS ORDERED: Clindamycin 600mg in D5W 50 ML IV ONE (23:30)
[2025-06-14] MEDS ORDERED: Clindamycin HC150 MG PO (00:29)
[2025-06-14 03:15] VITALS: BP 130/67
== END 2025-06-14 03:33 | disposition home or self-care (01) ==
LOC: ER 21:52
PROVIDERS: Student in an Organized Health Care Education/Training Program
DX: T63.301A Toxic effect of unspecified spider venom, accidental (unintentional), initial encounter (principal); L53.0 Toxic erythema; L03.116 Cellulitis of left lower limb; Z88.8 Allergy status to other drugs, medicaments and biological substances; Z88.0 Allergy status to penicillin; Z88.1 Allergy status to other antibiotic agents; Z79.2 Long term (current) use of antibiotics; Z79.82 Long term (current) use of aspirin; J45.909 Unspecified asthma, uncomplicated; Z90.710 Acquired absence of both cervix and uterus
CPT/HCPCS: 36415; 80053; 83605; 85025; 93005; 93010; 96365; 99283-25; J7030